=== PATIENT | male | born 1990 | race Caucasian/White ===

== ENCOUNTER 2021-12-26 19:44 | Observation (INO) | payer OTHER, SELFPAY ==
[2021-12-26 19:56] VITALS: BP 135/79; PULSE 85; RESP 15; TEMP 36.8; O2SAT 97; BMI 27.1
[2021-12-26 20:47] LABS: Add Manual Diff / Slide Review NO; Basophils Absolute Auto 0 /uL (0-100); Basophils Percent Auto 0.4 % (0-2); Eosinophils Absolute Auto 100 /uL (0-450); Hematocrit 44.9 % (41-53); Hemoglobin 15.1 g/dL (13.5-17.5); Lymphocytes Absolute Auto 1800 /uL (1100-4500); Lymphocytes Percent Auto 24.4 % (25-40); Mean Corpuscular HGB Conc 33.7 % (30-36); Mean Corpuscular Hemoglobin 29.3 PG (26-34); Mean Corpuscular Volume 87.1 fL (80-100); Monocytes Absolute Auto 600 /uL (0-900); Monocytes Percent Auto 8.2 % (3-14); Neutrophils Absolute Auto 4800 /uL (1500-7000); Platelet Count 163 X10^3/uL (150-400); Red Blood Cell Count 5.16 X10^6/uL (4.5-5.9); Red Cell Distribution Width 13.3 % (11.6-14.8); White Blood Cell Count 7.2 X10^3/uL (4.5-11.0)
[2021-12-26 21:01] LABS: Alanine Aminotransferase 26 IU/L (<50); Albumin 4.7 g/dL (3.5-5.0); Albumin Globulin Ratio 1.5 (1.0-2.8); Alkaline Phosphatase 76 U/L (38-126); Aspartate Aminotransferase 26 IU/L (17-59); BUN Creatinine Ratio 11.4 (6-22); Bilirubin Total 2.4 mg/dL (0.2-1.3); Blood Urea Nitrogen 12 mg/dL (9-20); Calcium 9.2 mg/dL (8.4-10.2); Carbon Dioxide 26 mmol/L (22-32); Chloride 101 mmol/L (98-107); Estimated Glomerular Filt Rate > 60 mL/min (>60); Globulin 3.1 g/dL (1.7-4.1); Glucose 100 mg/dL (70-100); HEMOLYSIS < 15 (0-50); Lipase 64 U/L (23-300); Potassium 3.8 mmol/L (3.4-5.1); Sodium 138 mmol/L (137-145); Total Protein 7.8 g/dL (6.3-8.2)
--- NOTE | 2021-12-26 21:24 | ED_ITS ---
HPI - Abdominal Pain General Chief Complaint: Abdominal Pain Stated Complaint: stomach issues, severe pain Time Seen by Provider: 12/26/21 21:22 Source: patient Mode of arrival: Ambulatory History of Present Illness HPI narrative: Patient is a 31-year-old male with no past medical history who presents today with right upper quadrant pain and epigastric pain it has been ongoing for about last 24 hours. He has been nauseous he has had decreased appetite. No real vomiting or fever. He tried to take some Tums and antacid medicine it has not helped. He denies any diarrhea or chest pain. Related Data Allergies Allergy/AdvReac Type Severity Reaction Status Date / Time No Known Drug Allergies Allergy Verified 12/26/21 20:02 Review of Systems Review of Systems Narrative: GENERAL: Denies chills, fatigue, malaise, fever, sweats, travel HEENT: Denies sinus pain, ear pain, sore throat, difficulty swallowing, neck pain RESPIRATORY: Denies dyspnea, cough, wheezing, hemoptysis, sputum. CARDIOVASCULAR: Denies chest pain, palpitations, orthopnea, edema GASTROINTESTINAL: See HPI : Denies dysuria, frequency, incontinence, hematuria, urinary retention, flank pain. MUSCULOSKELETAL: Denies weakness, joint pain, or bony pain SKIN: No rash, no erythema, no pruritus NEUROLOGIC: Denies weakness, dizziness, headache, numbness, change in speech, confusion PSYCHIATRIC: No concerning psychosocial issues. 12 point review of systems is negative except for those stated above and HPI Patient History Social History Smoking Status: Never smoker Smoking Status: Never smoker alcohol intake frequency: 0-2 drinks per day Substance Use Type: does not use Exam Initial Vital Signs Initial Vital Signs: Vital Signs Temperature 98.3 F 12/26/21 19:56 Pulse Rate 85 12/26/21 19:56 Respiratory Rate 15 12/26/21 19:56 Blood Pressure 135/79 12/26/21 19:56 Pulse Oximetry 97 12/26/21 19:56 Oxygen Delivery Method 12/26/21 19:56 GENERAL: Alert pleasant 31-year-old male appears in mild distress and in no acute distress. HEENT: Head atraumatic,EOMI, pupils reactive, face symmetric, moist mucous membranes CARDIOVASCULAR: Regular rate and rhythm without murmurs, rubs or gallops. RESPIRATORY: Breath sounds equal bilaterally, no wheezes rales or rhonchi. ABDOMEN: Soft, tender right upper quadrant pain no guarding no rebound EXTREMITIES: Normal range of motion, no clubbing or edema. Neurovascularly intact NEUROLOGICAL: Alert and oriented x4 SKIN: Warm, dry, no laceration, no petechiae, no rashes or lesions. Course Orders Ordered: ED Orders 12/26/21 20:30 Complete Blood Count AUTO DIFF Stat Comprehensive Metabolic Panel Stat Lipase Stat 12/26/21 21:27 US abdomen limited Stat 12/26/21 22:31 CT abdomen pelvis w con Stat Acetaminophen (Acetaminophen 325 Mg Tablet) 650 mg PO Q6HR FAYE Gabapentin (Gabapentin 300 Mg Capsule) 300 mg PO Q8HR FAYE Hydromorphone HCl (Hydromorphone 0.5 Mg Inj) 0.5 mg IV Q4H PRN PRN Reason: Breakthrough pain only (8-10) Sodium Chloride (Normal Saline 0.9%) 1,000 mls @ 150 mls/hr IV CONT FAYE Last Admin: 12/27/21 00:10 Dose: 150 mls/hr Documented By: DONA Piperacillin Sod/Tazobactam (Sod 3.375 gm/ Sodium Chloride) 100 mls @ 25 mls/hr IV Q8H FAYE Ketorolac Tromethamine (Ketorolac 30 Mg/Ml Vial) 15 mg IV Q6H FAYE Stop: 12/30/21 00:14 Oxycodone HCl (Oxycodone Ir 5 Mg Tablet) 5 mg PO Q4HR PRN PRN Reason: Pain, Moderate (4-6) Discontinued Medications Hydromorphone HCl (Hydromorphone 0.5 Mg Inj) 0.5 mg IV NOW ONE Stop: 12/26/21 22:31 Last Admin: 12/26/21 22:38 Dose: 0.5 mg Documented By: DONA Piperacillin Sod/Tazobactam (Sod 4.5 gm/ Sodium Chloride) 100 mls @ 200 mls/hr IV NOW ONE Stop: 12/26/21 23:57 Last Infusion: 12/27/21 00:44 Dose: 0 mls/hr Documented By: Admin: 12/27/21 00:10 Dose: 200 mls/hr Documented By: DONA Piperacillin Sod/Tazobactam (Sod 3.375 gm/ Sodium Chloride) 100 mls @ 25 mls/hr IV Q8H [facility] Ketorolac Tromethamine (Ketorolac 30 Mg/Ml Vial) 15 mg IV NOW ONE Stop: 12/26/21 21:28 Last Admin: 12/26/21 21:38 Dose: 15 mg Documented By: KMW Ondansetron HCl (Ondansetron 4 Mg/2 Ml Inj) 4 mg IV NOW ONE Stop: 12/26/21 22:31 Last Admin: 12/26/21 22:38 Dose: 4 mg Documented By: HNG Vital Signs Vital signs: Vital Signs - 8 hr 12/26/21 19:56 Temperature 98.3 F Pulse Rate 85 Respiratory Rate 15 Blood Pressure 135/79 Pulse Oximetry 97 Oxygen Delivery Method Room Air MDM - Abdominal Pain Lab Data Result diagrams: 12/26/21 20:30 12/26/21 20:30 Labs: Lab Results 12/26/21 12/26/21 Range/Units 20:30 20:30 WBC 7.2 (4.5-11.0) X10^3/uL RBC 5.16 (4.5-5.9) X10^6/uL Hgb 15.1 (13.5-17.5) g/dL Hct 44.9 (41-53) % MCV 87.1 (80-100) fL MCH 29.3 (26-34) PG MCHC 33.7 (30-36) % RDW 13.3 (11.6-14.8) % Plt Count 163 (150-400) X10^3/uL Neut % (Auto) 66.0 (50-75) % Lymph % (Auto) 24.4 L (25-40) % Bucks % (Auto) 8.2 (3-14) % Eos % (Auto) 1.0 L (2-4) % Baso % (Auto) 0.4 (0-2) % Neut # (Auto) 4800 (9821-8071) /uL Lymph # (Auto) 1800 (6642-5904) /uL Bucks # (Auto) 600 (0-900) /uL Eos # (Auto) 100 (0-450) /uL Baso # (Auto) 0 (0-100) /uL Sodium 138 (137-145) mmol/L Potassium 3.8 (3.4-5.1) mmol/L Chloride 101 (98-107) mmol/L Carbon Dioxide 26 (22-32) mmol/L BUN 12 (9-20) mg/dL Creatinine 1.05 (0.66-1.25) mg/dL Estimated GFR > 60 (>60) mL/min BUN/Creatinine Ratio 11.4 (6-22) Glucose 100 (70-100) mg/dL Calcium 9.2 (8.4-10.2) mg/dL Total Bilirubin 2.4 H (0.2-1.3) mg/dL AST 26 (17-59) IU/L ALT 26 (<50) IU/L Alkaline Phosphatase 76 (38-126) U/L Total Protein 7.8 (6.3-8.2) g/dL Albumin 4.7 (3.5-5.0) g/dL Globulin 3.1 (1.7-4.1) g/dL Albumin/Globulin Ratio 1.5 (1.0-2.8) Lipase 64 (23-300) U/L Imaging Data US - abdomen: Radiologist's Impression: Ultrasound Report Signed Patient: Tomás Aparicio MR#: [id number] : 1990 Acct:[id number] Age/Sex: 31 / M Date of Service: 12/26/21 Loc: 90B-1 Accession Number: [id number] ?? Procedure: US abdomen limited Ordering Provider: Shruti Alvarez D.O. PROCEDURE: US ABDOMEN LIMITED ? INDICATIONS:? ruq ? TECHNIQUE:? Real-time focused scanning was performed of the abdomen, with image documentation.? ? COMPARISON:? None. ? FINDINGS:? ? Liver appears normal in size and homogeneous in echotexture. ? The gallbladder demonstrates no gallstones, wall thickening, or pericholecystic fluid.? There are at least 2 small polyps identified measuring up to 0.4 cm each. ? No intra or extrahepatic biliary ductal dilatation. ? Visualized pancreas appears unremarkable sonographically. ? IMPRESSION:? ? 1. No cholelithiasis or evidence of cholecystitis. ? 2. Small gallbladder polyps measuring up to 0.4 cm.? ? ? Dictated by: Aneesh Montanez M.D. on 12/27/2021 at 1:18 ? ? CT scan - abdomen/pelvis: Radiologist's Impression: CT Scan Report Signed Patient: Tomás Aparicio MR#: [id number] : 1990 Acct:[id number] Age/Sex: 31 / M Date of Service: 12/26/21 Loc: 90B-1 Accession Number: [id number] ?? Procedure: CT abdomen pelvis w con Ordering Provider: Shruti Alvarez D.O. PROCEDURE:? CT ABDOMEN PELVIS W CON ? INDICATIONS:? increased ab pain ruq elevated bili ? TECHNIQUE:? After the administration of IV contrast, axial sections were acquired from the lung bases to the pubic symphysis.? Coronal and sagittal reformats were performed.? For radiation dose reduction, the following was used:? automated exposure control, adjustment of mA and/or kV according to patient size. ? COMPARISON:? None. ? FINDINGS:? Image quality:? Excellent.? ? Lung bases:? There is mild dependent atelectasis.? Heart:? Heart is normal in size. ? ? ABDOMEN: Liver:? No mass lesion. Gallbladder:? Within normal limits without calcified gallstones.? ? Biliary ducts:? No biliary ductal dilatation.? ? Pancreas:? Unremarkable.? ? Spleen:? Normal in size.? ? Adrenal Glands:? No adrenal nodules.? ? Kidneys and Ureters:? No hydronephrosis.? ? ? Stomach and Bowel:? Stomach and small bowel loops are normal in caliber and wall thickness.? The cecum is demonstrated within the right upper quadrant suggestive of a mobile cecum.? The appendix is thick-walled and enlarged, measuring up to 1.4 cm in diameter with periappendiceal fat stranding consistent with acute appendicitis.? The appendix is demonstrated in the right upper quadrant and extends to the inferior margin of the gallbladder.? There is mild wall thickening of the cecum which is nonspecific and may represent a colitis, reactive changes, or less likely a cecal mass.? No discrete loculated fluid collections to suggest an abscess. Peritoneum:? There is a small amount of intraperitoneal free fluid in the pelvis.? No free air.? ? Ventral Wall: ? No hernia.? Abdominal Nodes:? No retroperitoneal or mesenteric adenopathy by size criteria.? Vessels:? Aorta and inferior vena cava are normal in size.? ? PELVIS: Pelvic Organs:? Unremarkable.? ? Bladder:? Unremarkable.? ? Pelvic Nodes: No enlarged lymph nodes.? Miscellaneous: No inguinal hernias are seen. ? ? ? Bones:? Visualized osseous structures demonstrate no suspicious focal lesions. ? IMPRESSION:? ? 1. Acute appendicitis with the appendix demonstrated in the right upper quadrant extending to the inferior margin of the gallbladder. ? 2. Ascending colon and cecum demonstrated in the right upper quadrant suggestive of a mobile cecum.? No associated abnormal bowel dilatation or obstruction to suggest a volvulus. ? Findings discussed with Dr. Alvarez on 12/26/2021 at 11:53 p.m.. ? 3. Bowel wall thickening in the cecum is nonspecific and may represent a colitis, reactive changes secondary to appendicitis, or possible cecal mass.? ? ? Dictated by: Aneesh Montanez M.D. on 12/26/2021 at 23:51 ? ? [facility] Narrative Medical decision making narrative: Patient is having some right upper quadrant pain. Bilirubin is elevated 2.4 the common bile duct is pain with out elevation of liver enzymes. Gallbladder does not show any a dilation of common bile duct no cholelithiasis there is a small polyp. The patient is still in quite a bit of pain he is given dilaudid. CT does confirm appendicitis however it is in his right upper quadrant. He has no leukocytosis and is afebrile. Dr. Abrams updated on patient's symptoms and test results and happily exams patient. Discharge Plan Departure Patient Disposition: Admitted As Inpatient Clinical Impression: Acute appendicitis Admit Date/Time: 12/26/21 23:57 Admit Provider: Deborah Abrams
--- NOTE | 2021-12-26 21:27 | DI.US.S_ITS ---
PROCEDURE: US ABDOMEN LIMITED INDICATIONS: ruq TECHNIQUE: Real-time focused scanning was performed of the abdomen, with image documentation. COMPARISON: None. FINDINGS: Liver appears normal in size and homogeneous in echotexture. The gallbladder demonstrates no gallstones, wall thickening, or pericholecystic fluid. There are at least 2 small polyps identified measuring up to 0.4 cm each. No intra or extrahepatic biliary ductal dilatation. Visualized pancreas appears unremarkable sonographically. IMPRESSION: 1. No cholelithiasis or evidence of cholecystitis. 2. Small gallbladder polyps measuring up to 0.4 cm. Dictated by: Aneesh Montanez M.D. on 12/27/2021 at 1:18 Approved by: Aneesh Montanez M.D. on 12/27/2021 at 1:20
[2021-12-26] MEDS: KETOROLAC 30 MG/ML VIAL 15 MG IV (21:38)
--- NOTE | 2021-12-26 22:31 | DI.CT.S_ITS ---
PROCEDURE: CT ABDOMEN PELVIS W CON INDICATIONS: increased ab pain ruq elevated bili TECHNIQUE: After the administration of IV contrast, axial sections were acquired from the lung bases to the pubic symphysis. Coronal and sagittal reformats were performed. For radiation dose reduction, the following was used: automated exposure control, adjustment of mA and/or kV according to patient size. COMPARISON: None. FINDINGS: Image quality: Excellent. Lung bases: There is mild dependent atelectasis. Heart: Heart is normal in size. ABDOMEN: Liver: No mass lesion. Gallbladder: Within normal limits without calcified gallstones. Biliary ducts: No biliary ductal dilatation. Pancreas: Unremarkable. Spleen: Normal in size. Adrenal Glands: No adrenal nodules. Kidneys and Ureters: No hydronephrosis. Stomach and Bowel: Stomach and small bowel loops are normal in caliber and wall thickness. The cecum is demonstrated within the right upper quadrant suggestive of a mobile cecum. The appendix is thick-walled and enlarged, measuring up to 1.4 cm in diameter with periappendiceal fat stranding consistent with acute appendicitis. The appendix is demonstrated in the right upper quadrant and extends to the inferior margin of the gallbladder. There is mild wall thickening of the cecum which is nonspecific and may represent a colitis, reactive changes, or less likely a cecal mass. No discrete loculated fluid collections to suggest an abscess. Peritoneum: There is a small amount of intraperitoneal free fluid in the pelvis. No free air. Ventral Wall: No hernia. Abdominal Nodes: No retroperitoneal or mesenteric adenopathy by size criteria. Vessels: Aorta and inferior vena cava are normal in size. PELVIS: Pelvic Organs: Unremarkable. Bladder: Unremarkable. Pelvic Nodes: No enlarged lymph nodes. Miscellaneous: No inguinal hernias are seen. Bones: Visualized osseous structures demonstrate no suspicious focal lesions. IMPRESSION: 1. Acute appendicitis with the appendix demonstrated in the right upper quadrant extending to the inferior margin of the gallbladder. 2. Ascending colon and cecum demonstrated in the right upper quadrant suggestive of a mobile cecum. No associated abnormal bowel dilatation or obstruction to suggest a volvulus. Findings discussed with Dr. Alvarez on 12/26/2021 at 11:53 p.m.. 3. Bowel wall thickening in the cecum is nonspecific and may represent a colitis, reactive changes secondary to appendicitis, or possible cecal mass. Dictated by: Aneesh Montanez M.D. on 12/26/2021 at 23:51 Approved by: Aneesh Montanez M.D. on 12/27/2021 at 0:00
[2021-12-26] MEDS: HYDROMORPHONE 0.5 MG INJ IV (22:38)
[2021-12-26] MEDS: ONDANSETRON 4 MG/2 ML INJ IV (22:38)
[2021-12-27] VITALS (33 sets, daily range): BP systolic 102–128; BP diastolic 56–80; PULSE 55–86; RESP 15–18; TEMP 36.1–36.6; O2SAT 94–98; BMI 27.1
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
[2021-12-27] MEDS: PIPERACILLIN/TAZO 4.5 GM in SODIUM CHLORIDE 0.9% 100 ML IV (00:10)
[2021-12-27] MEDS: SODIUM CHLORIDE 0.9% 1,000 ML 150 ML IV (00:10)
[2021-12-27 00:43] LABS: COVID19 -Nasal RAPID Negative (Negative)
[2021-12-27] MEDS: ACETAMINOPHEN 325 MG TABLET 650 MG PO ×2 (06:37→17:09)
[2021-12-27] MEDS: GABAPENTIN 300 MG CAPSULE PO ×2 (06:37→22:04)
[2021-12-27] MEDS: KETOROLAC 30 MG/ML VIAL 15 MG IV (06:40)
--- NOTE | 2021-12-27 07:23 | PC.NURSE ---
Obtained patient care. Patient watching surgical video at request of Dr Abrams.
[2021-12-27] MEDS: PIPERACILLIN/TAZO 3.375 GM in SODIUM CHLORIDE 0.9% 100 ML IV (08:25)
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
[2021-12-27] MEDS: LACTATED RINGERS 1,000 ML 42 ML IV (13:30)
--- NOTE | 2021-12-27 13:57 | SUR.OPER ---
Supine on padded OR bed, head on pillow, right arm secured on padded arm boards at <90 degrees abduction, left arm tucked and padded with gel pad, legs uncrossed, safety belt at thigh, tape over blanket over lower legs. Directed and approved by surgeon Abrams
[2021-12-27] MEDS: BUPIVACAINE 0.5% (PF) 30 ML, EPINEPHrine 0.15 MG INJ (14:03)
--- NOTE | 2021-12-27 15:02 | P.OP_ITS ---
Operative Date/Time/Diagnoses Date of procedure: 12/27/21 Time of procedure: 15:03 Pre-op diagnosis: Acute appendicitis Post-op diagnosis: same Procedure & Clinicians Procedure: Laparoscopic appendectomy Same procedure as scheduled: Yes Indications: Acute appendicitis Surgeon: Deborah Abrams Click Yes if Unassisted: Yes Anesthesia Type: General and Local Operative Notes Findings: Acute appendicitis, stage III gangrenous. Unusual location and at the appendix was ?spooning? the gallbladder. Cecum and right upper quadrant Closure Type: primary Specimen(s): other (Appendix) Estimated Blood Loss (mL): 15 Procedure in detail: Preop diagnosis: Acute appendicitis Postop diagnosis: Same Operative procedure: Laparoscopic appendectomy Surgeon: Gerda Abrams MD Findings: Acute appendicitis stage III, cecum in the right upper quadrant with the appendix cupping the gallbladder Procedure: Patient placed in a supine position. Prepped and draped sterile fashion expose the abdomen. Infraumbilical port site was placed using open technique a 12 mm port. Insufflation began all other ports were placed under direct vision including a 5 mm port in this suprapubic area and a 5 mm port in the left lateral abdomen. Anticipation was that the cecum was mobile and could drop down into the right lower quadrant. This turned out to be incorrect and that there were attachments from the cecum to help suspended in the right upper quadrant. Appendix was mobilized with great effort as it cupped the gallbladder in its entirety. I mobilized with the blunt dissection electrocautery. Once we had the base defined a 45 NAHOMI load was used across the base the appendix with good approximation and healthy staple line. There was bleeding at the staple line which was gently cauterized for hemostasis. The abdomen was irrigated to a clear return. I then removed all ports and began closure. Closure consisted of interrupted 0 Vicryl for fascial closure. Skin was closed a running 4-0 Vicryl. Instrument, sponge, needle counts were correct. Patient was awakened, e xtubated, taken to recovery room stable condition. Blood loss: 15 mL Specimen: Appendix Complications: none Post-operative Condition: stable Disposition: PACU
[2021-12-27] MEDS: OXYCODONE IR 5 MG TABLET PO ×2 (17:55→22:11)
[2021-12-27] MEDS: HYDROMORPHONE 0.5 MG INJ IV (20:00)
[2021-12-27] MEDS: CELECOXIB 200 MG CAPSULE PO (22:04)
[2021-12-28] VITALS: BP 110/66; PULSE 69; RESP 16; TEMP 37.2; O2SAT 96
[2021-12-28] MEDS: ACETAMINOPHEN 325 MG TABLET 650 MG PO ×3 (00:17→11:09)
[2021-12-28] MEDS: OXYCODONE IR 5 MG TABLET PO ×3 (02:31→15:59)
[2021-12-28 04:00] VITALS: BP 106/54; PULSE 58; RESP 15; TEMP 36.7; O2SAT 98
[2021-12-28 04:16] LABS: Add Manual Diff / Slide Review NO; Basophils Absolute Auto 0 /uL (0-100); Basophils Percent Auto 0.5 % (0-2); Eosinophils Absolute Auto 0 /uL (0-450); Eosinophils Percent Auto 0.1 % (2-4); Hematocrit 37.1 % (41-53); Hemoglobin 12.9 g/dL (13.5-17.5); Lymphocytes Absolute Auto 1100 /uL (1100-4500); Mean Corpuscular HGB Conc 34.9 % (30-36); Mean Corpuscular Hemoglobin 29.9 PG (26-34); Mean Corpuscular Volume 85.8 fL (80-100); Monocytes Absolute Auto 400 /uL (0-900); Monocytes Percent Auto 5.6 % (3-14); Neutrophils Absolute Auto 5700 /uL (1500-7000); Neutrophils Percent Auto 78.8 % (50-75); Platelet Count 155 X10^3/uL (150-400); Red Blood Cell Count 4.33 X10^6/uL (4.5-5.9); White Blood Cell Count 7.3 X10^3/uL (4.5-11.0)
[2021-12-28] MEDS: GABAPENTIN 300 MG CAPSULE PO ×2 (06:42→14:54)
--- NOTE | 2021-12-28 07:25 | PC.NURSE ---
End of shift note. Care of patient from . AAOX4, good pain control with oxycodone 5mg, and tylenol. Up to BR to void. Abd lap site incisions, small amount SS drainage. Vitals WNL. Anticipate will discharge home with friend. 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
[2021-12-28 07:35] VITALS: BP 119/70; PULSE 63; RESP 18; TEMP 37.4; O2SAT 97
--- NOTE | 2021-12-28 08:57 | CM.DANOTE ---
DCP Note: Payor: Parker Stanford PCP: MD Anuel Pt is a 31 y.o. M who was admitted to the floor yesterday for an appendecitis found on CT. Pt had a laparoscopic appendectomy yesterday 12/27. DCP met with patient this morning. Pt up in bed and eating breakfast. Pt states that he feels good today and surgery went well. Pt is independent at baseline and is in from out of town. 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 Pt states that his friend will be able to pick him up once he is discharged. [place] as he is preparing for a work deployment. Pt has no other needs and he was thankful for the drop in. White board updated with DCP contact for any questions or concerns. P: Once pt is medically stable for discharge, pt to discharge home to base lodging via friend POV. Susie Livingston RN/GYPSY Discharge Planning/Care Management CM Discharge Assessment Start: 12/27/21 13:14 Freq: Status: Active Protocol: Document 12/27/21 13:14 THOMAS (Rec: 12/27/21 13:15 THOMAS [id number]) Discharge Planning Assessment Assigned Sr. Pricing Analyst Susie Livingston RN/GYPSY Advance Directives? No History Provided By Patient Has Patient been admitted in last 30 No days? Prior Living Arrangements House Household Members spouse,children Type of transporation used prior to Drives own vehicle admit Independent with ADL's Yes Is patient alert and oriented? Yes Caregiver for Another No Discharge Plan Home Referrals Initiated None needed Additional Comment At this time Whiteboard Updated in Patient Room with Yes name and ext. # of Sr. Pricing Analyst Comment Instructed to call if any other needs arise Review Status In Process Please Provide Date Initial DC 12/27/21 Assessment Was Performed Next Review Type Continued Stay Review
[2021-12-28] MEDS: CELECOXIB 200 MG CAPSULE PO (09:39)
[2021-12-28 11:00] VITALS: BP 123/76; PULSE 60; RESP 18; O2SAT 100
[2021-12-28 15:45] VITALS: BP 119/70; PULSE 60; RESP 18; TEMP 37.1; O2SAT 97
--- NOTE | 2021-12-28 17:00 | PC.NURSE ---
Addendum entered by Misha Thomas R.N. 12/28/21 19:06: Provided d/c packet and educational materials to pt. Instructed pt to call [facility] office tomorrow to obtain additional information regarding return to work info. 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 Provided education to medications, dsg instructions, post op wound infection, when to seek emergency medical treatment. Pt verbalizes understanding. PIV removed. Pt dressed himself. All belongings gathered. States his friend lives nearby and will be here to pick him up soon. Addendum entered by Misha Thomas R.N. 12/28/21 18:46: Spoke with Dr. Boone. Reported pt requesting return to work information and asking when it will be safe to fly again. states he does not have time to address this and instructs this RN to have pt f/u in [address]. [address] 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 states pt may f/u outpatient to obtain this info. Original Note: 1600- Pt expresses concern r/t plan of care. Pt is wondering when he may be discharged given he has to arrange transportation back to [facility]. Called to Dr. Boone and left message with endo nurse relating pt's concerns.
--- NOTE | 2021-12-28 18:18 | P.DS_ITS ---
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 He underwent a laparoscopic appendectomy once he was tolerating diet and passing gas with good pain control he was discharged home. Exam Vital Signs (past 8 hours): - 12/28/21 11:00 12/28/21 15:45 Temperature 98.8 F Pulse Rate 60 60 Respiratory Rate 18 18 Blood Pressure 123/76 119/70 Pulse Oximetry 100 97 Oxygen Flow Rate 0 0 Oxygen Delivery Method Room Air Oxygen Flow Rate 0 Objective Labs Result Diagrams: 12/28/21 04:00 12/26/21 20:30 Labs: Laboratory Results - last 24 hr 12/28/21 04:00 WBC 7.3 RBC 4.33 L Hgb 12.9 L Hct 37.1 L MCV 85.8 MCH 29.9 MCHC 34.9 RDW 13.0 Plt Count 155 Neut % (Auto) 78.8 H Lymph % (Auto) 15.0 L [place] % (Auto) 5.6 Eos % (Auto) 0.1 L Baso % (Auto) 0.5 Neut # (Auto) 5700 Lymph # (Auto) 1100 [place] # (Auto) 400 Eos # (Auto) 0 Baso # (Auto) 0 PFSH Social History household members: spouse and children Smoking Status: Never smoker Discharge Plan Discharge Plan Patient Disposition: Home Provider Discharge Comment: No lifting greater than 20 lb for 2 weeks. Okay to remove the outer dressing and shower after 24 hours. Leave the Steri-Strips on until they start to peel off in 1-2 weeks. Contact [facility] to schedule a follow-up visit in 2 weeks. Discharge orders & Medications Prescriptions: New celecoxib [Celebrex] 200 mg Capsule 200 mg PO BID Qty: 20 0RF acetaminophen 325 mg Tablet 650 mg PO Q6HR Qty: 30 0RF oxycodone 5 mg Tablet 5 mg PO Q4HR PRN (Reason: Pain, Moderate (4-6)) Qty: 10 0RF hydrocodone-acetaminophen 5-325 mg tablet 1 tab PO Q8H PRN (Reason: pain) Qty: 10 0RF Follow up/Referrals: Deborah Abrams MD [Physician] - ANAND Agee MD [Primary Care Provider] - Diet/Activity/Treatments Diet: Diet as Tolerated Activity: restrict lifting to 15 lbs for 2 weeks Skin/Wound/Dressing Care Report to your healthcare provider any signs of infection, such as:: chills, fever, increased pain, unusual drainage and unusual redness Visit Report/Discharge Packet Instructions: DI for an Appendectomy Stand Alone Forms: Surgery Discharge Discharge Data Primary Care Provider: ANAND Agee Attending Provider: Deborah Abrams Quality VTE Deep Vein Thrombosis/Pulmonary Embolism Present on Admission: No
== END 2021-12-28 19:15 | disposition home or self-care (01) ==
LOC: ED 21:22 → AC 12-27 00:29
PROVIDERS: Admitting Provider Surgery; Emergency Provider Emergency Medicine; Referring Provider Emergency Medicine; Visit Provider Surgery
PROC: 0DTJ4ZZ Resection of Appendix, Percutaneous Endoscopic Approach (ICD-10-PCS; CPT 44970; principal; 2021-12-27 13:45)
DX: K35.891 Other acute appendicitis without perforation, with gangrene (principal); Z20.822 Contact with and (suspected) exposure to COVID-19
CPT/HCPCS: 44970; 36415; 74177; 76705; 80053; 83690; 85025; 87635; 94762; 99284; C9803; G0378; J0171; J1100; J1170; J1885; J2250; J2405; J2543; J2704; J3010; Q9967